=== PATIENT | female | born 1960 | race Caucasian/White ===

== ENCOUNTER 2018-06-22 05:05 | Inpatient (IN) | payer OTHER ==
[2018-06-22] MEDS ORDERED: Gabapentin 300 MG Cap PO ONE (06:15)
[2018-06-22] MEDS ORDERED: Celecoxib 200 MG Cap PO ONE (06:15)
[2018-06-22] MEDS ORDERED: Acetaminophen 500 MG Tab PO ONE (06:15)
[2018-06-22] MEDS ORDERED: Dextrose 5%-Lactated Ringers 1,000 ML IV SCH (06:30)
[2018-06-22] MEDS ORDERED: Scopolamine 1.5 MG Transdermal Patch TOP SCH (06:30)
[2018-06-22] MEDS ORDERED: cefOXitin 2 GM Vial ONE (06:57)
[2018-06-22] MEDS ORDERED: Ondansetron 4 MG/2 ML SDV ONE (07:07)
[2018-06-22] MEDS ORDERED: Glycopyrrolate 0.2 MG/ML 5 ML MDV ONE (07:07)
[2018-06-22] MEDS ORDERED: Rocuronium 50 MG/5 ML Vial ONE (07:07)
[2018-06-22] MEDS ORDERED: Succinylcholine 200 MG/10 ML MDV ONE (07:07)
[2018-06-22] MEDS ORDERED: Propofol 200 MG/20 ML SDV ONE (07:07)
[2018-06-22] MEDS ORDERED: Neostigmine Methylsulfate 1 MG/ML 5 ML Syringe ONE (07:07)
[2018-06-22] MEDS ORDERED: Dexamethasone 4 MG/ML SDV ONE (07:07)
[2018-06-22] MEDS ORDERED: Lidocaine 2% 100 MG/5 ML Syringe IVPUSH SCH (08:00)
[2018-06-22] MEDS ORDERED: Ketamine 500 MG/5 ML MDV IV SCH (08:00)
[2018-06-22] MEDS ORDERED: Ropivacaine 58 ML, Dexamethasone 8 MG, EPINEPHrine 0.4 MG, Sodium Chloride 0.9% 19.6 ML NERVRT SCH ×4 (08:00)
[2018-06-22] MEDS ORDERED: Ketamine 50 MG in Sodium Chloride 0.9% 49.5 ML IV SCH (08:00)
[2018-06-22] MEDS ORDERED: Lidocaine 0.4%/D5W 2 GM/500 ML BAG IV SCH (08:00)
[2018-06-22] MEDS ORDERED: hydrOXYzine HCl 100 MG/2 ML SDV IM ONE (09:19)
[2018-06-22] MEDS ORDERED: fentaNYL 100 MCG/2 ML SDV IVPUSH ONE (09:32)
[2018-06-22] MEDS ORDERED: Ondansetron 4 MG/2 ML SDV IVPUSH ONE (09:32)
[2018-06-22] MEDS: cefOXitin 2 GM in Sodium Chloride 0.9% 50 ML IV ONE ×2 (10:57→11:05)
[2018-06-22] MEDS ORDERED: diphenhydrAMINE 50 MG/ML SDV IVPUSH PRN (11:00)
[2018-06-22] MEDS ORDERED: Ondansetron 4 MG/2 ML SDV IVPUSH PRN (11:00)
[2018-06-22] MEDS ORDERED: Labetalol 20 MG/4 ML Syringe IVPUSH PRN (11:00)
[2018-06-22] MEDS ORDERED: Metoclopramide 10 MG/2 ML SDV IVPUSH PRN (11:00)
[2018-06-22] MEDS ORDERED: Pantoprazole 40 MG Vial IVPUSH SCH ×2 (11:30→16:00)
[2018-06-22] MEDS: Acetaminophen Soln 650 MG/20.3 ML UD Cup PO SCH ×3 (11:38→23:41)
[2018-06-22] MEDS: hydrOXYzine HCl 100 MG/2 ML SDV IM PRN (11:46)
[2018-06-22] MEDS: cefOXitin 2 GM in Sodium Chloride 0.9% 50 ML IV SCH ×2 (13:30→19:36)
[2018-06-22] MEDS: Gabapentin 250 MG/5 ML Solution ML 470 ML Bottle PO SCH ×2 (13:32→21:26)
[2018-06-22] MEDS: MVI, Adult with Vitamin K 10 ML, Thiamine 200 MG, Chromium/Copper/Mang/Selen/Zn 1 ML in... IV SCH ×8 (13:32→16:35)
[2018-06-22] MEDS: HYDROmorphone 1 MG/ML Syringe IVPUSH PRN ×2 (15:08→22:18)
[2018-06-22] MEDS: Heparin Sodium 5,000 Units/ML Vial SUBCUT SCH (17:14)
[2018-06-22] MEDS: Dextrose 5%-Lactated Ringers 1,000 ML IV SCH (19:37)
[2018-06-23] MEDS: Dextrose 5%-Lactated Ringers 1,000 ML IV SCH (01:40)
[2018-06-23] MEDS: cefOXitin 2 GM in Sodium Chloride 0.9% 50 ML IV SCH ×2 (01:44→08:38)
[2018-06-23] MEDS ORDERED: Iohexol 647 MG/ML 50 ML SDV PO PRN (02:10)
[2018-06-23] MEDS: Heparin Sodium 5,000 Units/ML Vial SUBCUT SCH ×2 (05:13→15:16)
[2018-06-23] MEDS: Acetaminophen Soln 650 MG/20.3 ML UD Cup PO SCH ×3 (05:13→17:46)
[2018-06-23] MEDS ORDERED: Dextrose 5%-Lactated Ringers 1,000 ML IV SCH (08:15)
[2018-06-23] MEDS: SCOPOLAMINE PATCH CHECK TOP SCH (08:20)
[2018-06-23] MEDS: Celecoxib 200 MG Cap PO SCH (08:20)
[2018-06-23] MEDS: Gabapentin 250 MG/5 ML Solution ML 470 ML Bottle PO SCH ×3 (08:38→22:36)
--- NOTE | 2018-06-23 11:14 | PN ---
DATE OF SERVICE: 06/23/2018 The patient is postop day #1 from a laparoscopic Monika-en-Y gastric bypass along with diaphragmatic repair. Clinically, she has done well. Oral intake is fairly good and upper GI x-ray looks good. We will go up to a step-2 diet today and restart her Chantix. Pain control appears adequate with the present regimen and she may be ready for discharge home tomorrow. Justin Tolliver MD /[id number]
[2018-06-23] MEDS ORDERED: Ondansetron 4 MG Tab.DIS PO PRN (12:02)
[2018-06-23] MEDS: Pantoprazole 40 MG Delayed-Release Granules 1 Packet PO SCH (12:15)
[2018-06-23] MEDS ORDERED: Tranexamic Acid 1,000 MG in Sodium Chloride 0.9% 50 ML IV STA (15:39)
[2018-06-23] MEDS ORDERED: Sodium Chloride 0.9% 10 ML Syringe FLUSH PRN (15:40)
[2018-06-23] MEDS ORDERED: MVI, Adult with Vitamin K 10 ML, Thiamine 200 MG, Chromium/Copper/Mang/Selen/Zn 1 ML in... IV SCH ×4 (16:00)
[2018-06-23] MEDS ORDERED: Sodium Chloride 0.9% 50 ML ONE ×2 (16:34→21:46)
[2018-06-23] MEDS ORDERED: Tranexamic Acid 1,000 MG in Sodium Chloride 0.9% 500 ML IV ONE ×2 (21:27→22:30)
[2018-06-23] MEDS ORDERED: Coagulation Factor VIIa Recombinant (per MCG) 2 MG Vial IVPUSH ONE (21:27)
[2018-06-24] MEDS: Acetaminophen Soln 650 MG/20.3 ML UD Cup PO SCH ×5 (01:15→23:58)
[2018-06-24] MEDS: Celecoxib 200 MG Cap PO SCH (08:26)
[2018-06-24] MEDS: SCOPOLAMINE PATCH CHECK TOP SCH (08:27)
[2018-06-24] MEDS: Gabapentin 250 MG/5 ML Solution ML 470 ML Bottle PO SCH ×3 (08:34→21:11)
[2018-06-24] MEDS ORDERED: Cyanocobalamin (Vitamin B12) 1,000 MCG/ML SDV IM ONE (09:00)
--- NOTE | 2018-06-24 09:03 | PN ---
DATE OF SERVICE: 06/24/2018 SUBJECTIVE: Angel had a total of 10 bloody stools yesterday. She was given tranexamic acid x2. Stools did decrease in number. She had no stools during the night. Temperature max of 100.1. Oral intake 1660. ALEJANDRO put out 60 mL of a light red drainage. Hemoglobin on admission 06/22/2018 was 13.8 and hemoglobin this a.m. was 7.8. Angel states she feels good. She has no questions or concerns. OBJECTIVE: GENERAL: Angel Archuleta is a 58-year-old female. VITAL SIGNS: TPR is 98.1, 84, 16, blood pressure 111/73. HEENT: Negative. NECK: Supple. HEART: Regular rate and rhythm. LUNGS: Clear. ABDOMEN: Soft, nontender. Incisions look good. There is some leaking around the ALEJANDRO drain of a light pink serosanguineous drainage. EXTREMITIES: Without peripheral edema. SCDs are on. ASSESSMENT: Laparoscopic Monika-en-Y gastric bypass surgery, repair of paraesophageal diaphragmatic hernia, liver biopsy, and excision of mediastinal lipoma for morbid obesity, hepatomegaly, diaphragmatic hernia, and mediastinal lipoma. Date of surgery: 06/22/2018. PLAN: Check CBC in a.m. Follow up p.r.n. or if any further bleeding. Plan discharge in a.m. Paola Oliva PA-C /[id number]
--- NOTE | 2018-06-24 09:23 | CR ---
UGI wo KUB HISTORY: Prior Monika-en-Y surgery COMPARISON: None FINDINGS: On the 15 minute image the proximal small bowel is filled with contrast in dilated measuring up to 5 cm. Surgical drain at the surgical gastric remnant level. No extravasation of contrast. Impression: Dilated proximal small bowel (rouxl limb) with Monika-en-Y anatomy.
[2018-06-24] MEDS: Pantoprazole 40 MG Delayed-Release Granules 1 Packet PO SCH (10:49)
[2018-06-25] MEDS: hydrOXYzine HCl 100 MG/2 ML SDV IM PRN (03:52)
[2018-06-25] MEDS: Acetaminophen Soln 650 MG/20.3 ML UD Cup PO SCH ×4 (05:16→23:47)
[2018-06-25] MEDS: Celecoxib 200 MG Cap PO SCH (08:18)
[2018-06-25] MEDS: Gabapentin 250 MG/5 ML Solution ML 470 ML Bottle PO SCH ×3 (08:19→20:30)
--- NOTE | 2018-06-25 10:52 | PN ---
DATE OF SERVICE: 06/25/2018 SUBJECTIVE: Angel was ready to be discharged today, then had a 500 mL liquid purplish red stool and she does not feel like she wants to go home when she still having bowel movements that are that color. Hemoglobin went from 7.8-7.7 this morning. She states she feels good. Vital signs have been stable. Has no pain. REVIEW OF SYSTEMS: Remainder of review of systems negative for any pertinent positives and negatives. OBJECTIVE: GENERAL: Angel Archuleta is a 58-year-old female. VITAL SIGNS: TPR is 98.4, pulse 77, respirations 16, blood pressure is 92/49. HEENT: Negative. NECK: Supple. HEART: Regular rate and rhythm. LUNGS: Clear. ABDOMEN: ALEJANDRO drain intact. It will be removed. Incisions look good. The ALEJANDRO drain has been draining a light pink serosanguineous drainage. Abdominal binder has been on. EXTREMITIES: Without peripheral edema. ASSESSMENT: 1. GI bleed, thought to be old blood in colon. 2. Laparoscopic Monika-en-Y gastric bypass surgery, repair of paraesophageal diaphragmatic hernia, liver biopsy, excision of mediastinal lipoma for morbid obesity, hepatomegaly, diaphragmatic hernia, and mediastinal lipoma. Date of surgery, 06/22/2018. PLAN: 1. Check CBC at 1400. 2. Discontinue ALEJANDRO drain. 3. We will evaluate p.r.n. or in a.m. 4. Plan discharge in a.m. if no further stools. Paola Oliva PA-C /[id number]
[2018-06-25] MEDS: Pantoprazole 40 MG Delayed-Release Granules 1 Packet PO SCH (14:28)
[2018-06-26] MEDS: Acetaminophen Soln 650 MG/20.3 ML UD Cup PO SCH (05:34)
[2018-06-26] MEDS: Celecoxib 200 MG Cap PO SCH (08:10)
[2018-06-26] MEDS: Gabapentin 250 MG/5 ML Solution ML 470 ML Bottle PO SCH (08:12)
--- NOTE | 2018-06-29 09:03 | DISCH ---
ADMISSION DIAGNOSES: 1. Morbid obesity. 2. Pure hypercholesterolemia. 3. Recent closed fracture of multiple pubic rami. DISCHARGE DIAGNOSES: 1. Gastrointestinal bleed, thought to be old blood in the colon. 2. Laparoscopic Monika-en-Y gastric bypass surgery paraesophageal diaphragmatic hernia. 3. Liver biopsy excision of mediastinal lipoma. 4. Morbid obesity. 5. Hepatomegaly. 6. Diaphragmatic hernia. 7. Mediastinal lipoma. DATE OF SURGERY: 06/22/2018. SURGEON: Justin Tolliver MD. HISTORY: Angel Archuleta is a 58-year-old female with longstanding history of morbid obesity and increasing comorbidities. After preoperative evaluation, discussion of possible risks and possible complications, she wished to proceed with surgical procedure. HOSPITAL COURSE: Leonela had her surgery on 06/22/2018. On postoperative day #1, she had some bloody stools. She was given 2 doses of tranexamic acid, and her bleeding did cease. She continued to have some dark bloody stools. Hemoglobin went from 13.5 on admission and stayed 7.8, 7.7, 7.9, and 7.6. She was able to be discharged to home on 06/26/2018. Oral intake was adequate. Vital signs were stable. She seemed hemodynamically stable throughout the entire hospital stay. She did receive adequate dietary instruction and remainder of review of systems negative for any pertinent positives and negatives. OBJECTIVE: GENERAL: Angel is a 58-year-old female. VITAL SIGNS: Height is 5 feet 3.5 inches. Weight is 258 pounds 12.8 ounces. TPR is 98.6/80/16, blood pressure 109/81. HEENT: Negative. NECK: Supple. HEART: Regular rate and rhythm. LUNGS: Clear. ABDOMEN: Incisions look good. Sutures intact. Abdominal binder is on. EXTREMITIES: Without peripheral edema. DISPOSITION: Discharged home. CONDITION: Stable and improving. FOLLOWUP: Followup appointment on 07/01/2018 at 12:00 p.m. HOME MEDICATIONS: 1. Tylenol 650 mg q.6 hours p.r.n. pain. 2. Celebrex 200 mg p.o. daily, 14. 3. Zofran ODT 4 mg every 6 hours p.r.n. nausea. 4. Protonix 40 mg p.o. daily for 30 days with 1 refill. 5. She is to resume her home medications of Chantix as directed. DISCHARGE INSTRUCTIONS: Diet: Step 2 gastric bypass diet with no cereal for 2 weeks until 07/06/2018. Drink 8 to 10 glasses of water a day. Other activity as tolerated. No lifting greater than 10 pounds for 2 weeks. Walk at least 6 times daily inside your home. Driving, do not drive for 1 week. May shower. Notify provider if any fever, increased pain, nausea, or vomiting. Keep the site clean and dry. Wear abdominal binder for 2 weeks and then as tolerated. Use incentive spirometer 10 times every hour while awake.
--- NOTE | 2018-07-08 09:10 | OR ---
DATE OF PROCEDURE: 06/22/2018 PREOPERATIVE DIAGNOSIS: Morbid obesity. POSTOPERATIVE DIAGNOSES: 1. Morbid obesity. 2. Marked hepatomegaly. 3. Paraesophageal diaphragmatic hernia. 4. Mediastinal lipoma. OPERATIVE PROCEDURES: 1. Laparoscopic Monika-en-Y gastric bypass with long limb gastroenterostomy (22370). 2. Andrae-Cut needle liver biopsy (95611). 3. Repair of Paraesophageal diaphragmatic hernia (58959). 4. Excision of mediastinal lipoma (08313). ANESTHESIA: General. SOLAR INSTALLER: Paola Oliva PA-C INDICATIONS FOR PROCEDURE: This is a 58-year-old female presenting with longstanding morbid obesity and increasingly significant comorbidities. After preoperative evaluation and discussion, she wished to proceed with a gastric bypass procedure. Potential risks of the procedure including bleeding, infection, injury to the viscera, and problems with leaks or bowel obstruction over time were all reviewed along with the remote possibility of cardiopulmonary, septic, or hemorrhagic complications leading to , and the patient wishes to proceed. DETAILS OF PROCEDURE: The patient was taken to the operating room and placed in a supine position. After general endotracheal anesthesia was induced, she was converted to a lithotomy position and the abdomen prepped and draped. 15 cm inferior and 5 cm left of the xiphoid process, a transverse incision was made and the peritoneal cavity entered under direct vision with an Optiview trocar and inflated to 15 mmHg pressure with CO2. Laparoscope was then reinserted. No underlying trocar insertion site injuries were seen. Following this, 5 additional trocars were placed across the upper and mid abdomen. Bilateral transversus abdominis plane blocks were then placed, and the liver was noted to be markedly fatty infiltrated, and Andrae-Cut needle biopsies obtained from the left lobe of the liver. Minimal bleeding from the biopsy sites was controlled with electrocautery. At this point, the omentum was retracted superiorly, and the small bowel was identified at the ligament of Treitz. Small bowel was traced out to 150 cm distal from that point where it was divided transversely with a JOSE stapler. Small bowel was then traced out an additional 200 cm where the [id number] enteroenterostomy was accomplished with internal firing of the Endo-JOSE 60 mm stapler. Common opening was then closed transversely with the same stapler, angles anastomosed, and mesenteric defect approximated with some 0 Ethibond stitch along with fibrin sealant. The divided end of the Monika limb was then from the mesentery for a few centimeters, which allowed an antecolic position of the Monika limb up to the level of the gastroesophageal junction without tension. The liver was then retracted anteriorly. The patient was noted to have a moderate-sized paraesophageal diaphragmatic hernia. Photodocumentation was obtained, and the hernia was then reduced. The peritoneum overlying incised and reflected downward. During the course of the dissection, a roughly ping-pong ball-sized mediastinal lipoma was encountered, and to facilitate a more adequate crural repair, this was excised and sent for histologic evaluation. An anterior repair of the diaphragmatic hernia was then accomplished with a series of 0 Ethibond sutures reinforced with PTFE pledgets. The gastrointestinal balloon catheter was then inflated 15 mL and pulled up snugly against the EG junction. Gastric wall over the apex of the balloon was then marked with electrocautery, and balloon catheter deflated and pulled up from the esophagus. The lesser omental tissue adjacent to the gastric cardia was then incised, allowing dissection of the stomach behind the area of the cauterized benny on the gastric cardia, and the pouch was then initiated with a transverse firing of the JOSE stapler at that level. Pouch was then completed with additional firings of the JOSE steven up to and through the angle of His. Upon completion of the pouch, both staple lines appeared to be intact. The anvil of a 25 mm EEA stapler was attached to a [place] sump type tube, and it was brought down through the mouth and taken out through a small opening in the gastric pouch, allowing the anvil likewise to be pulled down to within the gastric pouch, and the Monika limb was then opened, and the main body of the EEA stapler was passed several centimeters into the lumen of the small bowel, brought up the anvil and united with it, thus creating the gastrojejunostomy. Upon removal of the stapler, double donuts of mucosa were noted within it. The small bowel was closed off with a vascular staple line. Gastrojejunostomy was then reinforced with some 3-0 Vicryl seromuscular stitch along with fibrin sealant. A leak test was accomplished with injection of 120 mL of air in the gastric pouch while submerged with cefoxitin-containing saline solution. No leaks were identified. A single Adán-Christopher drain was then taken out through the left lateral trocar site and positioned adjacent to the gastrojejunostomy, and from there, up into the area of the splenic fossa. At that point, no further problems were noted. Trocars were removed and the peritoneal cavity deflated. The incision was closed with some 4-0 Vicryl skin stitch, which was also used to fix the drain. The patient was taken to the recovery room in satisfactory condition. There were no other complications. Physician anatomic pathology assistant, Paola Oliva PA-C, played an essential role in assisting in this case, helping to position the patient, retract structures as needed, as well as suturing and cutting sutures when indicated. Her presence improved patient safety and decreased the operative time. Justin Tolliver MD /[id number]
== END 2018-06-26 11:05 | disposition home or self-care (01) | DRG 620 ==
LOC: JP.SDSSCHI 05:05 → JP.SDS 05:05 → JP.2SS 09:30 → EDSTATUS 09:30
PROVIDERS: ADMIT Surgery; ATTEND Surgery
PROC: 0D164ZA Bypass Stomach to Jejunum, Percutaneous Endoscopic Approach (ICD-10-PCS; principal; 2018-06-22)
PROC: 0BQT4ZZ Repair Diaphragm, Percutaneous Endoscopic Approach (ICD-10-PCS; 2018-06-22)
PROC: 0FB24ZX Excision of Left Lobe Liver, Percutaneous Endoscopic Approach, Diagnostic (ICD-10-PCS; 2018-06-22)
PROC: 3E0T3BZ Introduction of Anesthetic Agent into Peripheral Nerves and Plexi, Percutaneous Approach (ICD-10-PCS; 2018-06-22)
PROC: 0WBC4ZX Excision of Mediastinum, Percutaneous Endoscopic Approach, Diagnostic (ICD-10-PCS; 2018-06-22)
DX: E66.01 Morbid (severe) obesity due to excess calories (principal); K92.1 Melena; R16.0 Hepatomegaly, not elsewhere classified; K44.9 Diaphragmatic hernia without obstruction or gangrene; D17.4 Benign lipomatous neoplasm of intrathoracic organs; Z68.42 Body mass index [BMI] 45.0-49.9, adult; E78.00 Pure hypercholesterolemia, unspecified; Z86.32 Personal history of gestational diabetes
CPT/HCPCS: 36415; 74240; 74240-26; 80053; 83735; 84100; 85027; 86850; 86900; 86901; 88304; 88307; 88313; 94762; A9270-GY; C9113; J0171; J0330; J0694; J1100; J1170; J1644; J2001; J2405; J2704; J2710; J2795; J3010; J3410; J3411; J3420; J3490; J7040; J7042; J7050; J7189; Q9967

== ENCOUNTER 2020-11-21 09:16 | Emergency (ER) | payer SELFPAY ==
--- NOTE | 2020-11-21 09:56 | EDM.PDOC ---
ED HPI GENERAL MEDICAL PROBLEM - General Chief Complaint: General Stated Complaint: MEDICAL [facility]IA [facility] Time Seen by Provider: 11/21/20 09:25 Source of Information: Reports: EMS History Limitations: Reports: Altered Mental Status - History of Present Illness INITIAL COMMENTS - FREE TEXT/NARRATIVE: This is a 60-year-old female with history of gastric bypass surgery who presents with altered mental status. Patient is unable to provide any history due to obtundation. History is primarily provided by her sister. 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 Yesterday they were out fishing, had 4-5 beers around the fire yesterday evening when the patient went to bed around 10 PM. She was found by her sister this morning laying on top of the covers of her bed with feces scattered throughout the room and a trail of stool between the bathroom in the bedroom. The patient was noted to have a ecchymosis over her left eye. She was nonverbal for sister and EMS was called. She is not on any blood thinners. She actually takes no prescription medication other than some vitamins for history of gastric bypass. - Related Data Allergies Allergy/AdvReac Type Severity Reaction Status Date / Time No Known Allergies Allergy Verified 04/13/18 08:12 Home Meds: Home Meds Calcium Carbonate [Calcium] 600 mg PO DAILY 11/21/20 [History] Cholecalciferol (Vitamin D3) [Vitamin D] 5,000 unit PO DAILY 11/21/20 [History] Cyanocobalamin (Vitamin B-12) [B-12] 1,000 mcg PO DAILY 11/21/20 [History] Multivitamin [Multi-Day Vitamins] 1 each PO DAILY 11/21/20 [History] Vitamin B Complex [B Complex] 1 each PO DAILY 11/21/20 [History] Past Medical History HEENT History: Reports: Impaired Vision Genitourinary History: Reports: None [employer]ENTICE History: Reports: , Spontaneous Musculoskeletal History: Reports: Fracture, Osteoarthritis, Other (See Below) Other Musculoskeletal History: pelvic fx in Apr 2018 Neurological History: Reports: Migraines Endocrine/Metabolic History: Reports: Obesity/BMI 30+ - Infectious Disease History Infectious Disease History: Reports: Chicken Pox, Measles, Mumps, Shingles - Past Surgical History HEENT Surgical History: Reports: None, KYLE Female Surgical History: Reports: Section, Tubal Ligation Endocrine Surgical History: Reports: None Neurological Surgical History: Reports: None Musculoskeletal Surgical History: Reports: None Social & Family History - Family History Family Medical History: No Pertinent Family History - Caffeine Use Caffeine Use: Reports: None ED ROS GENERAL - Review of Systems Review Of Systems: Unable To Obtain (Unable to obtain due to obtundation.) Reason Not Obtained: Obtundation ED EXAM, GENERAL - Physical Exam Exam: See Below Exam Limited By: Altered Mental Status General Appearance: Obtunded Eye Exam: Bilateral Eye: PERRL Ears: Normal External Exam Nose: Normal Inspection Throat/Mouth: Normal Inspection Head: Other (Ecchymosis over the left eye.) Neck: Normal Inspection Respiratory/Chest: Lungs Clear Cardiovascular: Regular Rate, Rhythm GI/Abdominal: Soft, Non-Tender Back Exam: Normal Inspection Extremities: Normal Inspection Neurological: Slow to Respond, Other (Patient is obtunded. She has eye-opening to voice. Responds to questions and nonsensical speech. She is following commands and moving all 4 extremities. Further motor testing is limited due to obtundation.) Skin Exam: Warm, Dry Course - Vital Signs Last Recorded V/S: Last Vital Signs Temp 36.3 C 11/21/20 09:54 Pulse 60 11/21/20 09:54 Resp 14 11/21/20 09:54 BP 140/85 11/21/20 09:54 Pulse Ox 99 11/21/20 09:54 - Orders/Labs/Meds Orders: Active Orders 24 hr Category Date Time Status INR,PT,PROTHROMBIN TIME [COAG] Stat Lab 11/21/20 10:00 Ordered Mannitol [Mannitol 20%] Med 11/21/20 10:25 Ordered 70 gm in 350 ml IV ONETIME levETIRAcetam [Keppra] 2,000 mg Med 11/21/20 10:40 Active Sodium Chloride 0.9% [Normal Saline] 100 ml IV ONETIME Medication Orders Mannitol (Mannitol 20%) 70 gm in 350 mls @ 350 mls/hr 1 gm/kg (70 gm) IV ONETIME ONE Stop: 11/21/20 11:24 Levetiracetam 2,000 mg/ Sodium (Chloride) 120 mls @ 400 mls/hr IV ONETIME ONE Stop: 11/21/20 10:57 Labs: Laboratory Tests 11/21/20 11/21/20 11/21/20 Range/Units 09:29 09:36 09:36 WBC 16.0 H (4.5-11.0) K/uL RBC 4.74 (3.30-5.50) M/uL Hgb 14.7 D (12.0-15.0) g/dL Hct 45.6 (36.0-48.0) % MCV 96 (80-98) fL MCH 31 (27-31) pg MCHC 32 (32-36) % Plt Count 215 (150-400) K/uL ABG Hemoglobin 15.3 (12.0-16.0) g/dL ABG Oxyhemoglobin 62.5 % ABG Carboxyhemoglobin 5.2 H (0.0-1.6) % ABG Methemoglobin 1.4 % VBG pH 7.402 (7.350-7.450) VBG pCO2 43.9 mm/Hg VBG pO2 33.5 mm/Hg VBG HCO3 26.8 mmol/L VBG Total CO2 23.4 mmol/L VBG O2 Saturation 66.9 VBG O2 Content 13.4 %vol VBG Base Excess 2.1 mm/L O2 Delivery Device Room air Sodium 143 (140-148) mmol/L Potassium 4.4 (3.6-5.2) mmol/L Chloride 103 (100-108) mmol/L Carbon Dioxide 28 (21-32) mmol/L Anion Gap 12.1 (5.0-14.0) mmol/L BUN 10 D (7-18) mg/dL Creatinine 0.7 (0.6-1.0) mg/dL Est Cr Clr Drug Dosing 72.00 mL/min Estimated GFR (MDRD) > 60 (>60) Glucose 133 H (74-106) mg/dL Lactic Acid (0.4-2.0) mmol/L Calcium 8.6 (8.5-10.1) mg/dL Total Bilirubin 0.7 D (0.2-1.0) mg/dL AST 39 H D (15-37) U/L ALT 37 (12-78) U/L Alkaline Phosphatase 70 (46-116) U/L Ammonia (11-32) umol/L Total Protein 6.7 (6.4-8.2) g/dL Albumin 3.5 (3.4-5.0) g/dL Globulin 3.2 (2.3-3.5) g/dL Albumin/Globulin Ratio 1.1 L (1.2-2.2) Urine Color (YELLOW) Urine Appearance (CLEAR) Urine pH (5.0-8.0) Ur Specific [place] (1.008-1.030) Urine Protein (NEGATIVE) mg/dL Urine Glucose (UA) (NEGATIVE) mg/dL Urine Ketones (NEGATIVE) mg/dL Urine Occult Blood (NEGATIVE) Urine Nitrite (NEGATIVE) Urine Bilirubin (NEGATIVE) Urine Urobilinogen (0.2-1.0) EU/dL Ur Leukocyte Esterase (NEGATIVE) Urine RBC (0-5) Urine WBC (0-5) Ur Epithelial Cells Amorphous Sediment Urine Bacteria Urine Mucus Urine Opiates Screen (NEGATIVE) Ur Oxycodone Screen (NEGATIVE) Urine Methadone Screen (NEGATIVE) Ur Propoxyphene Screen (NEGATIVE) Ur Barbiturates Screen (NEGATIVE) Ur Tricyclics Screen (NEGATIVE) Ur Phencyclidine Scrn (NEGATIVE) Ur Amphetamine Screen (NEGATIVE) U Methamphetamines Scrn (NEGATIVE) Urine MDMA Screen (NEGATIVE) U Benzodiazepines Scrn (NEGATIVE) U Cocaine Metab Screen (NEGATIVE) U Marijuana (THC) Screen (NEGATIVE) Ethyl Alcohol mg/dL 11/21/20 11/21/20 11/21/20 Range/Units 09:36 09:36 09:39 WBC (4.5-11.0) K/uL RBC (3.30-5.50) M/uL Hgb (12.0-15.0) g/dL Hct (36.0-48.0) % MCV (80-98) fL MCH (27-31) pg MCHC (32-36) % Plt Count (150-400) K/uL ABG Hemoglobin (12.0-16.0) g/dL ABG Oxyhemoglobin % ABG Carboxyhemoglobin (0.0-1.6) % ABG Methemoglobin % VBG pH (7.350-7.450) VBG pCO2 mm/Hg VBG pO2 mm/Hg VBG HCO3 mmol/L VBG Total CO2 mmol/L VBG O2 Saturation VBG O2 Content %vol VBG Base Excess mm/L O2 Delivery Device Sodium (140-148) mmol/L Potassium (3.6-5.2) mmol/L Chloride (100-108) mmol/L Carbon Dioxide (21-32) mmol/L Anion Gap (5.0-14.0) mmol/L BUN (7-18) mg/dL Creatinine (0.6-1.0) mg/dL Est Cr Clr Drug Dosing mL/min Estimated GFR (MDRD) (>60) Glucose (74-106) mg/dL Lactic Acid 2.9 H (0.4-2.0) mmol/L Calcium (8.5-10.1) mg/dL Total Bilirubin (0.2-1.0) mg/dL AST (15-37) U/L ALT (12-78) U/L Alkaline Phosphatase (46-116) U/L Ammonia 16 (11-32) umol/L Total Protein (6.4-8.2) g/dL Albumin (3.4-5.0) g/dL Globulin (2.3-3.5) g/dL Albumin/Globulin Ratio (1.2-2.2) Urine Color (YELLOW) Urine Appearance (CLEAR) Urine pH (5.0-8.0) Ur Specific [place] (1.008-1.030) Urine Protein (NEGATIVE) mg/dL Urine Glucose (UA) (NEGATIVE) mg/dL Urine Ketones (NEGATIVE) mg/dL Urine Occult Blood (NEGATIVE) Urine Nitrite (NEGATIVE) Urine Bilirubin (NEGATIVE) Urine Urobilinogen (0.2-1.0) EU/dL Ur Leukocyte Esterase (NEGATIVE) Urine RBC (0-5) Urine WBC (0-5) Ur Epithelial Cells Amorphous Sediment Urine Bacteria Urine Mucus Urine Opiates Screen (NEGATIVE) Ur Oxycodone Screen (NEGATIVE) Urine Methadone Screen (NEGATIVE) Ur Propoxyphene Screen (NEGATIVE) Ur Barbiturates Screen (NEGATIVE) Ur Tricyclics Screen (NEGATIVE) Ur Phencyclidine Scrn (NEGATIVE) Ur Amphetamine Screen (NEGATIVE) U Methamphetamines Scrn (NEGATIVE) Urine MDMA Screen (NEGATIVE) U Benzodiazepines Scrn (NEGATIVE) U Cocaine Metab Screen (NEGATIVE) U Marijuana (THC) Screen (NEGATIVE) Ethyl Alcohol < 3 mg/dL 11/21/20 11/21/20 Range/Units 09:41 09:41 WBC (4.5-11.0) K/uL RBC (3.30-5.50) M/uL Hgb (12.0-15.0) g/dL Hct (36.0-48.0) % MCV (80-98) fL MCH (27-31) pg MCHC (32-36) % Plt Count (150-400) K/uL ABG Hemoglobin (12.0-16.0) g/dL ABG Oxyhemoglobin % ABG Carboxyhemoglobin (0.0-1.6) % ABG Methemoglobin % VBG pH (7.350-7.450) VBG pCO2 mm/Hg VBG pO2 mm/Hg VBG HCO3 mmol/L VBG Total CO2 mmol/L VBG O2 Saturation VBG O2 Content %vol VBG Base Excess mm/L O2 Delivery Device Sodium (140-148) mmol/L Potassium (3.6-5.2) mmol/L Chloride (100-108) mmol/L Carbon Dioxide (21-32) mmol/L Anion Gap (5.0-14.0) mmol/L BUN (7-18) mg/dL Creatinine (0.6-1.0) mg/dL Est Cr Clr Drug Dosing mL/min Estimated GFR (MDRD) (>60) Glucose (74-106) mg/dL Lactic Acid (0.4-2.0) mmol/L Calcium (8.5-10.1) mg/dL Total Bilirubin (0.2-1.0) mg/dL AST (15-37) U/L ALT (12-78) U/L Alkaline Phosphatase (46-116) U/L Ammonia (11-32) umol/L Total Protein (6.4-8.2) g/dL Albumin (3.4-5.0) g/dL Globulin (2.3-3.5) g/dL Albumin/Globulin Ratio (1.2-2.2) Urine Color Yellow (YELLOW) Urine Appearance Slightly cloudy A (CLEAR) Urine pH 5.5 (5.0-8.0) Ur Specific [place] >= 1.030 (1.008-1.030) Urine Protein 30 H (NEGATIVE) mg/dL Urine Glucose (UA) Negative (NEGATIVE) mg/dL Urine Ketones Negative (NEGATIVE) mg/dL Urine Occult Blood Small H (NEGATIVE) Urine Nitrite Negative (NEGATIVE) Urine Bilirubin Negative (NEGATIVE) Urine Urobilinogen 0.2 (0.2-1.0) EU/dL Ur Leukocyte Esterase Negative (NEGATIVE) Urine RBC 0-5 (0-5) Urine WBC Not seen (0-5) Ur Epithelial Cells Not seen Amorphous Sediment Not seen Urine Bacteria Not seen Urine Mucus Many Urine Opiates Screen Negative (NEGATIVE) Ur Oxycodone Screen Negative (NEGATIVE) Urine Methadone Screen Negative (NEGATIVE) Ur Propoxyphene Screen Negative (NEGATIVE) Ur Barbiturates Screen Negative (NEGATIVE) Ur Tricyclics Screen Negative (NEGATIVE) Ur Phencyclidine Scrn Negative (NEGATIVE) Ur Amphetamine Screen Negative (NEGATIVE) U Methamphetamines Scrn Negative (NEGATIVE) Urine MDMA Screen Negative (NEGATIVE) U Benzodiazepines Scrn Negative (NEGATIVE) U Cocaine Metab Screen Negative (NEGATIVE) U Marijuana (THC) Screen Negative (NEGATIVE) Ethyl Alcohol mg/dL Meds: Medications Generic Name Dose Route Start Last Admin Trade Name Freq PRN Reason Stop Dose Admin Mannitol 70 gm in 350 mls @ 350 mls/hr 11/21/20 10:25 Mannitol 20% 1 gm/kg (70 gm) 11/21/20 11:24 IV ONETIME ONE Levetiracetam 2,000 mg/ Sodium 120 mls @ 400 mls/hr 11/21/20 10:40 Chloride IV 11/21/20 10:57 ONETIME ONE - Re-Assessments/Exams Free Text/Narrative Re-Assessment/Exam: This is a 60-year-old female history gastric bypass surgery who presents via EMS for altered mental status. She was last seen normal at 10 PM yesterday. On my exam here she is noted to have a depressed GCS of 12, she opens eyes on commands, not able to respond to voice, is following commands with grossly normal motor function in extremities. She is noted to have an ecchymosis over the left eye, no other traumatic injuries noted. Blood pressure on multiple checks is less than 140 systolically, diastolics typically in the 60s to 80s. She is sating well on room air. She is protecting her airway. Stat head CT was obtained upon arrival to the ED which shows a large right intraparenchymal bleed with some subdural and possible subarachnoid component on the right, 5 mm of right to left midline shift, scattered left-sided subarachnoid blood. Labs obtained and are generally unrevealing. She is not known to be on any blood thinners but INR is pending. Our plan is to transfer her to [facility] in [place] for further cares for her large intracranial hemorrhage. Her BP currently does not require any intervention. She is getting loaded with 2 g of Keppra. I am administering 1 g per kg of mannitol given the midline shift on her CT. Chest x-ray also reveals possible right lower lobe infiltrate, likely aspiration given her history, she will receive 2 g of ceftriaxone. She may need further traumatic work-up when she arrives in [place], particularly CT of the cervical spine could be considered, we deferred the studies for now in favor of promptly getting her to a tertiary care center. 11/21/20 10:37 Departure - Departure Time of Disposition: 10:30 Disposition: DC/Tfer to Acute Hospital 02 Clinical Impression: Subdural hematoma, Brain compression Fall Qualifiers: Encounter type: initial encounter Qualified Code(s): W19.XXXA - Unspecified fall, initial encounter Intraparenchymal hematoma of brain Qualifiers: Encounter type: initial encounter Laterality: right Loss of consciousness presence/duration: with LOC of unspecified duration Qualified Code(s): S06.349A - Traumatic hemorrhage of right cerebrum with loss of consciousness of unspecified duration, initial encounter - Discharge Information Referrals: PCP,None [Primary Care Provider] - Forms: ED Department Discharge Critical Care Note - Critical Care Note Total Time (mins): 45 Comments: 45 minutes of critical care time were spent assessing and treating undifferentiated encephalopathy ultimately due to the large intracranial hemorrhage with midline shift requiring repeated neurologic assessments and treatment to prevent herniation syndrome. This is exclusive of procedural time. Sepsis Event Note (ED) - Focused Exam Vital Signs: Vital Signs Temp Pulse Resp BP Pulse Ox 11/21/20 09:54 36.3 C 60 14 140/85 99 11/21/20 09:30 36.3 C 68 20 162/85 H 97 - My Orders Last 24 Hours: My Active Orders 11/21/20 10:00 INR,PT,PROTHROMBIN TIME [COAG] Stat 11/21/20 10:25 Mannitol [Mannitol 20%] 70 gm in 350 ml IV ONETIME 11/21/20 10:40 levETIRAcetam [Keppra] 2,000 mg Sodium Chloride 0.9% [Normal Saline] 100 ml IV ONETIME - Assessment/Plan Last 24 Hours: My Active Orders 11/21/20 10:00 INR,PT,PROTHROMBIN TIME [COAG] Stat 11/21/20 10:25 Mannitol [Mannitol 20%] 70 gm in 350 ml IV ONETIME 11/21/20 10:40 levETIRAcetam [Keppra] 2,000 mg Sodium Chloride 0.9% [Normal Saline] 100 ml IV ONETIME
--- NOTE | 2020-11-21 10:19 | CT ---
Head wo Cont CLINICAL HISTORY: Obtundation COMPARISON: None TECHNIQUE: Transverse scans were obtained from the base of the skull through the vertex without IV contrast on a multislice, multidetector CT scanner. Auto dosage reduction and iterative reconstruction techniques employed. FINDINGS: There are large areas of parenchymal hematoma in the right frontal and right temporal lobes with some surrounding edema. This causes mass effect with slight shift of the midline to the left of approximately 5 mm. There may be some minimal subfalcine herniation. There is a subdural blood along the right frontal and temporal convexity. This measures approximately 7 mm at its maximum. There is small areas of subarachnoid blood over the left frontal temporal lobes. There is no blood in the suprasellar cistern. IMPRESSION: Parenchymal hematomas involving the right frontal and right temporal lobes. There is some surrounding edema. There is mass effect with slight shift of the midline to the left Moderate-sized right subdural hematoma. A subarachnoid component is not excluded Left subarachnoid hemorrhage described above
--- NOTE | 2020-11-21 10:22 | CR ---
CHEST: Portable 11/21/2020 at 959 CLINICAL HISTORY:Tachypnea COMPARISON:2018 FINDINGS: There is some faint patchy density in the right infrahilar region. Heart and pulmonary vascularity are normal. There are atherosclerotic changes in the aorta. Impression: Patchy right infrahilar density is suspect for right lower lobe pneumonia.
[2020-11-21] MEDS ORDERED: levETIRAcetam 2,000 MG in Sodium Chloride 0.9% 100 ML IV ONE ×2 (10:24→10:40)
[2020-11-21] MEDS ORDERED: MANNITOL IV ONE ×2 (10:25→10:45)
[2020-11-21] MEDS ORDERED: cefTRIAXone 2 GM in Sodium Chloride 0.9% 50 ML IV ONE ×2 (10:33→11:00)
[2020-11-21] MEDS ORDERED: levETIRAcetam 2,000 MG in Sodium Chloride 0.9% 150 ML IV ONE (10:45)
== END 2020-11-21 11:07 ==
LOC: JP.ED 09:16
DX: S06.349A Traumatic hemorrhage of right cerebrum with loss of consciousness of unspecified duration, initial encounter (principal); S06.2X9A Diffuse traumatic brain injury with loss of consciousness of unspecified duration, initial encounter; E66.9 Obesity, unspecified; Z68.26 Body mass index [BMI] 26.0-26.9, adult; X58.XXXA Exposure to other specified factors, initial encounter
CPT/HCPCS: 36415; 70450; 71045; 80053; 80305; 80307; 81001; 82140; 82803; 83605; 85027; 85610; 96365; 96368; 96375; 99285; J0696; J1953

== ENCOUNTER 2024-12-10 09:29 | Emergency (ER) | payer MEDICARE, OTHER ==
[2024-12-10] MEDS: Acetaminophen/oxyCODONE 325-5 MG Tab PO ONE (11:59)
[2024-12-10] MEDS ORDERED: Propofol 200 MG/20 ML SDV ONE (12:13)
[2024-12-10] MEDS: Sodium Chloride 0.9% 1,000 ML IV SCH (12:37)
[2024-12-10] MEDS: HYDROmorphone 0.5 MG/0.5 ML Syringe IVPUSH ONE (13:39)
[2024-12-10] MEDS: Ibuprofen 600 MG Tab PO ONE (14:06)
== END 2024-12-10 14:17 | disposition home or self-care (01) ==
LOC: JP.ED 09:29
DX: S52.571A Other intraarticular fracture of lower end of right radius, initial encounter for closed fracture (principal); S52.611A Displaced fracture of right ulna styloid process, initial encounter for closed fracture; E78.00 Pure hypercholesterolemia, unspecified; F17.210 Nicotine dependence, cigarettes, uncomplicated; Z98.84 Bariatric surgery status; Z79.899 Other long term (current) drug therapy; W19.XXXA Unspecified fall, initial encounter
CPT/HCPCS: 01820; 25605; 73090; 73110; 76000; 99283; A9270; J2704; J7030

== ENCOUNTER 2024-12-21 20:34 | Emergency (ER) | payer MEDICARE ==
[2024-12-21 21:56] LABS: BASOPHILS ABSOLUTE AUTO 0.04 K/uL (0.00-0.10); BASOPHILS PERCENT AUTO 0.3 % (0.1-1.3); EOSINOPHILS ABSOLUTE AUTO 0.03 K/uL (0.00-0.40); EOSINOPHILS PERCENT AUTO 0.2 % (0.0-5.4); IMMATURE GRAN ABSOLUTE AUTO 0.08 K/uL (0.00-0.23); IMMATURE GRAN PERCENT AUTO 0.5 % (0.0-0.7); LYMPHOCYTES ABSOLUTE AUTO 0.91 K/uL (0.8-3.3); LYMPHOCYTES PERCENT AUTO 5.8 % (11.4-47.7); MONOCYTES ABSOLUTE AUTO 0.93 K/uL (0.20-0.90); MONOCYTES PERCENT AUTO 5.9 % (3.3-12.6); NEUTROPHILS ABSOLUTE AUTO 13.83 K/uL (1.0-7.6); NEUTROPHILS PERCENT AUTO 87.3 % (40.0-78.1); PLATELET COUNT,PLT 285 K/uL (130-375); RED BLOOD CELL COUNT 4.21 M/uL (3.77-5.24); WHITE BLOOD CELL COUNT,WBC 15.8 K/uL (3.2-11.0)
[2024-12-21 22:21] LABS: A/G RATIO 0.7 (1.2-2.2); ALANINE AMINOTRANSFERASE,ALT 12 U/L (12-78); ASPARTATE AMNIOTRANSFERASE,AST 11 U/L (15-37); BILIRUBIN TOTAL 0.5 mg/dL (0.2-1.0); BLOOD UREA NITROGEN,BUN 36 mg/dL (7-18); CARBON DIOXIDE,CO2 26 mmol/L (21-32); CHLORIDE,CL 101 mmol/L (100-108); CREATININE 0.6 mg/dL (0.6-1.0); ESTIMATED GFR 99 mL/min (>60); GLUCOSE RANDOM 115 mg/dL (74-106); POTASSIUM,K 4.4 mmol/L (3.6-5.2); PROTEIN TOTAL,TP 6.0 g/dL (6.4-8.2); SODIUM,NA 137 mmol/L (140-148); TROPONIN I HIGH SENSITIVITY 12.0 pg/mL (<=60.3)
[2024-12-21 22:44] LABS: APPEARANCE,URINE SLIGHTLY CLOUDY (CLEAR); GLUCOSE,URINE NEGATIVE (NEGATIVE); OCCULT BLOOD,URINE NEGATIVE (NEGATIVE)
[2024-12-21 22:53] LABS: EPITHELIAL CELLS,URINE MODERATE
[2024-12-21] MEDS ORDERED: Sodium Chloride 0.9% 10 ML Syringe FLUSH PRN (23:15)
== END 2024-12-22 01:34 | disposition home or self-care (01) ==
LOC: JP.ED 20:34
DX: S01.01XA Laceration without foreign body of scalp, initial encounter (principal); E86.0 Dehydration; F17.210 Nicotine dependence, cigarettes, uncomplicated; Z79.899 Other long term (current) drug therapy; E78.00 Pure hypercholesterolemia, unspecified; W01.198A Fall on same level from slipping, tripping and stumbling with subsequent striking against other object, initial encounter; Y93.89 Activity, other specified
CPT/HCPCS: 12002; 36415; 70450; 80053; 80307; 81001; 83605; 84484; 85025; 93005; 93010; 96360; 99284; J7030